=== PATIENT | male | born 1985 | race Caucasian/White ===

== ENCOUNTER 2023-06-23 13:48 | Emergency (ER) | payer BC, MEDICAID ==
[~2023-06-23] VITALS: Ht 188 cm; Wt 138.2 kg
[~2023-06-23 13:48] MED LIST: HYDR-4353 PO
[2023-06-25] MEDS ORDERED: LORazepam 0.5 MG tablet PO ONE (10:20)
[2023-06-25] MEDS ORDERED: diphenhydrAMINE 25mg capsule PO ONE (10:20)
[2023-06-25] MEDS ORDERED: normal saline 1000ml 1,000 ML IV SCH (10:20)
[2023-06-25] MEDS ORDERED: atropine 0.1mg/ml 10ml syringe IV ONE (10:20)
[2023-06-25] MEDS ORDERED: MIDAZolam 1mg/ml 10ml vial IV ONE (10:20)
[2023-06-25] MEDS ORDERED: amiodarone 150mg/dext, iso-os 100 ML IV ONE (10:20)
[2023-06-25] MEDS ORDERED: morphine 10mg/ml inj. IV ONE (10:20)
== END 2023-06-23 14:55 | disposition left against medical advice (07) ==
LOC: ER 13:48
DX: R07.9 Chest pain, unspecified (principal); Z53.21 Procedure and treatment not carried out due to patient leaving prior to being seen by health care provider
CPT/HCPCS: 93005; 99281

== ENCOUNTER 2024-01-28 22:45 | Emergency (ER) | payer MEDICAID, OTHER ==
[~2024-01-28] VITALS: Ht 188 cm; Wt 100.0 kg
[2024-01-28 22:46] VITALS: RESP 18
[2024-01-28] MEDS: LIDOcaine 1% W/epiNEPHrine 1:100,000 20ml vial SQ ONE (23:29)
[2024-01-29 00:07] VITALS: BP 113/82; PULSE 74; TEMP 98; O2SAT 98
== END 2024-01-29 00:10 | disposition home or self-care (01) ==
LOC: ER 22:45
DX: S01.81XA Laceration without foreign body of other part of head, initial encounter (principal); Z88.1 Allergy status to other antibiotic agents; Z88.2 Allergy status to sulfonamides; Z79.899 Other long term (current) drug therapy; W01.0XXA Fall on same level from slipping, tripping and stumbling without subsequent striking against object, initial encounter; Y93.89 Activity, other specified; Y92.89 Other specified places as the place of occurrence of the external cause; Y99.8 Other external cause status
CPT/HCPCS: 12013; 99282; J7030; A6449